=== PATIENT | male | born 1960 | race Caucasian/White ===

== ENCOUNTER 2017-01-11 20:30 | Emergency (ER) | payer OTHER ==
[~2017-01-11] VITALS: Ht 190.5 cm; Wt 90.0 kg
[~2017-01-11 20:30] MED LIST: AMB10 PO; AMIT25TA9 PO; DICL100G20 TP; HYDR1TAB69 PO; IMI25 PO; MOXI3DRO OP; ONDA4TAB48 PO
[2017-01-11 20:41] VITALS: BP 120/66; PULSE 82; RESP 20; O2SAT 99
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
[2017-01-11] MEDS ORDERED: IBUP400T22 PO (22:32)
[2017-01-11 22:45] VITALS: BP 108/67; PULSE 61; RESP 18; O2SAT 99
== END 2017-01-11 22:45 | disposition home or self-care (01) ==
LOC: SED 20:30
DX: S16.1XXA Strain of muscle, fascia and tendon at neck level, initial encounter (principal); V43.53XA Car driver injured in collision with pick-up truck in traffic accident, initial encounter; Y93.9 Activity, unspecified; Y92.410 Unspecified street and highway as the place of occurrence of the external cause; Y99.9 Unspecified external cause status; Z88.5 Allergy status to narcotic agent